=== PATIENT | male | born 1980 | race Two or more races ===

== ENCOUNTER 2017-03-03 10:05 | Emergency (ER) | payer OTHER ==
--- NOTE | 2017-03-03 10:29 | EDPHY ---
H & P Time Seen by Provider: 03/03/17 10:09 HPI/ROS: HPI Left pinky injury. 36-year-old male by private vehicle. He is right hand dominant. He was at work. 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 He had a metal plate fall onto his left pinky finger. He sustained an injury to the distal dorsal aspect of the left pinky and left pinky finger nail. No other injury or complaint. ROS: Constitutional: No fever, no chills. No weakness. Musculoskeletal: No back pain. No neck pain. As above Skin: No rashes. Laceration left pinky finger as above. Neurological: No headache. No focal weakness or altered sensation. Past medical history: Diabetic, type 1. No allergies to penicillins. Social history: Here with work colleague. Physical Exam: General Appearance: Alert, no distress. This patient is responding to questions appropriately and in full sentences. This patient appears well- hydrated and well-nourished. Eyes: Pupils equal and round no pallor or injection. No lid edema, erythema or injection. Left pinky exam significant for a fracture unlikely laceration through the mid nail with partial avulsion of the distal half of the nail. The distal half of the nail is well adhered to the underlying nail bed. There is a associated avulsion type nail bed laceration. There is a soft tissue defect/avulsion type laceration at the tip of digit. No pulsatile bleeding. The finger is neurovascularly intact with sensation to light touch on the ulnar are and radial aspects of the distal digit. The PIP, DIP and MCP joints range without any pain or impingement. Neurological: Motor sensory function is grossly intact. Cranial nerves are normal. Gait is normal. Skin: Warm and dry, no rashes. As above. Extremities are symmetrical except. All joints range without pain or impingement. Psychiatric: No agitation. No depression. Database: EKG: Imaging: Left 5th digit x-ray series: Minimally displaced distal phalanx tuft fracture. Interpreted by me. Procedures: Procedure: Laceration repair. Verbal consent was obtained from the patient. The 1.5 cm laceration on the left hand distal little finger was anesthetized in the usual fashion with digital block using 0.5% bupivacaine without epinephrine. Excellent local anesthesia was obtained. The wound was irrigated, draped and explored to its base with a gloved finger. There were no deep structures involved. No tendon injury was identified. No foreign body was identified. The distal finger tip wound wound was repaired with 2 Prolene 6.0 monofilament sutures and 3 Ethilon 6.0 sutures placed in interrupted fashion. The distal half of the nail was tacked down on either side of the nail bed with 6.0 Ethilon sutures placed in interrupted fashion x2. The wound repair was tolerated well and there were no complications. The procedure was performed by myself. Emergency department course: Prior to wound care, the patient was given 875 mg of oral Augmentin secondary to likely open fracture by clinical exam as well as the fact that he is a type 1 diabetic. He will be prescribed this medication on discharge. Appropriate x- rays obtained of the left 5th finger. On my evaluation of this patient's left distal middle finger wound the avulsed nail was still well adhered to the underlying nail bed on the distal aspect of the nail and nail bed. I felt removing the nail would cause increased trauma to the nail bed. The nail bed had an avulsion type laceration defect that was filled with the underlying tissue that was adhered to the nail itself. I decided to leave this in place and secure the distal half of the nail in place temporarily until the patient could be seen on follow-up with Dr. Alicia Dee, orthopedic hand specialist, on Tuesday. Contacted the office of Dr. Alicia Dee. Appointment arranged for Tuesday at 4: 00 p.m.. Patient splinted appropriately with aluminum finger splint and underlying fine mesh gauze dressing. Patient instructed on follow up with Dr. Alicia Dee as above. Patient understands his follow-up. Return to emergency department reviewed. Infection precautions discussed. All of his questions were answered. 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 Differential Diagnosis: The differential diagnosis on this patient includes but is not limited to left 5th finger nail avulsion injury. Significant neurovascular injury unlikely. This represents a partial list of diagnoses considered. These considerations are based on history, physical exam, past history, reassessment and diagnostic testing. Smoking Status: Former smoker Constitutional: Initial Vital Signs Temperature (C) 36.8 C 03/03/17 10:10 Heart Rate 86 03/03/17 10:10 Respiratory Rate 18 03/03/17 10:10 Blood Pressure 135/85 H 03/03/17 10:10 O2 Sat (%) 97 03/03/17 10:10 O2 Delivery Mode Room Air Allergies/Adverse Reactions: No Known Allergies Allergy (Unverified 03/03/17 10:19) Home Medications: Medication Instructions Recorded Amoxicillin/Clavulanate Pot 875 mg PO BID 7 Days 03/03/17 [Augmentin 875 mg tab] Insulin Regular, Human 03/03/17 Medical Decision Making - Diagnostics Imaging Results: Imaging Impressions Finger X-Ray 03/03/17 10:10 Impression: Fracture of distal phalangeal tuft of the left little finger. - Data Points Medications Given: Discontinued Medications Amoxicillin/Clavulanate Potassium (Augmentin 875mg) 875 mg PO EDNOW ONE PRN Reason: Protocol Stop: 03/03/17 10:34 Last Admin: 03/03/17 10:40 Dose: 875 mg Departure - Departure Disposition: Home, Routine, Self-Care Clinical Impression: Avulsion of fingernail of left hand, Laceration of left little finger, Fracture of distal phalanx of finger of left hand Condition: Good Instructions: Care For Your Stitches (ED), Laceration (ED), Finger Fracture (ED ), Nail Avulsion (ED) Additional Instructions: Read and follow provided instructions. Sutures can be removed in 7 days. Follow-up with Dr. Alicia Dee, hand specialist, on Tuesday afternoon at 4:00 p.m., arrive about 20 minutes early. Her address is [address] [place] [address], [address]. Take antibiotic as prescribed through entire course of treatment. Ibuprofen dosin mg every 6 hours with meals for the next 3 days only. Return to the emergency department for worsening pain, discoloration, swelling or redness spreads up your finger or wrist, fever, bleeding or other serious concerns. You are at a higher risk of infection because of your diabetes. Follow instructions closely. Keep wound area clean and dry. Referrals: Alicia Dee MD [Medical Doctor] - As per Instructions Prescriptions: Amoxicillin/Clavulanate Pot [Augmentin 875 mg tab] 875 mg PO BID 7 Days
[2017-03-03] MEDS ORDERED: AMOXICILLIN/CLAVULANATE POT 875/125 MG TAB PO ONE (10:33)
[2017-03-03 10:34] VITALS: PULSE 86; TEMP 98.2; O2SAT 97
[2017-03-03 11:51] VITALS: BP 130/80; RESP 16
== END 2017-03-03 11:49 | disposition home or self-care (01) ==
LOC: CED 10:05
PROC: 0HQGXZZ Repair Left Hand Skin, External Approach (ICD-10-PCS; principal; 2017-03-03)
DX: S62.637A Displaced fracture of distal phalanx of left little finger, initial encounter for closed fracture (principal); S61.217A Laceration without foreign body of left little finger without damage to nail, initial encounter; E11.9 Type 2 diabetes mellitus without complications; Z87.891 Personal history of nicotine dependence; W20.8XXA Other cause of strike by thrown, projected or falling object, initial encounter; Y99.0 Civilian activity done for income or pay; Y93.89 Activity, other specified
CPT/HCPCS: 73140-PO; L3925